=== PATIENT | male | born 1980 | race African-American/Black ===

== ENCOUNTER 2018-03-21 20:16 | Inpatient (IN) | payer BC, MEDICAID ==
[~2018-03-21] VITALS: Ht 162.6 cm; Wt 88.0 kg
[2018-03-21] MEDS ORDERED: [UNRECOGNIZED DRUG - OTHER] PO (20:38)
[2018-03-21 21:00] LABS: MEAN CORPUSCULAR HEMOGLOBIN 32.9 pg (27.5-34.5); MEAN CORPUSCULAR HGB CONC 33.6 g/dL (33.2-36.2); MEAN CORPUSCULAR VOLUME 98.2 fL (81-97); MEAN PLATELET VOLUME 7.4 fL (7.4-10.4); PLATELET COUNT 508 x10^3/uL (130-400); RED BLOOD COUNT 4.12 x10^6/uL (4.38-5.82); RED CELL DISTRIBUTION WIDTH 14.1 % (9.4-14.8)
[2018-03-21] MEDS ORDERED: PHARMACOKINETIC CONSULTATION MC ONE (21:00)
[2018-03-21] MEDS ORDERED: MORPHINE SULFATE 4 MG/ML, 1ML IVPush PRN (21:00)
[2018-03-21] MEDS ORDERED: VANCOMYCIN 1,800 MG in SODIUM CHLORIDE 0.9% 250 ML IV ONE (21:00)
[2018-03-21] MEDS ORDERED: VANCOMYCIN PER PHARMACY MC PRN ×2 (21:00→23:30)
[2018-03-21] MEDS ORDERED: PIPERACILLIN/TAZO/PMX 4.5GM 100 ML IV SCH (21:00)
[2018-03-21 21:08] LABS: PROTHROMBIN TIME 10.3 Seconds (9.6-11.5)
[2018-03-21 21:10] LABS: ALANINE AMINOTRANSFERASE 19 U/L (12-78); ALBUMIN 2.7 g/dL (3.4-5.0); ANION GAP 8 mmol/L (5-15); CALCIUM 9.2 mg/dL (8.5-10.1); CHLORIDE 102 mmol/L (98-107); CREATININE 0.89 mg/dL (0.7-1.3)
[2018-03-21 21:13] LABS: ALKALINE PHOSPHATASE 100 U/L (45-117); BILIRUBIN,TOTAL 0.2 mg/dL (0.2-1.0); MD YES; TOTAL PROTEIN 8.9 g/dL (6.4-8.2)
[2018-03-21 21:15] LABS: <PLT MORPHOLOGY> NORMAL PLT MORPH; <RBC MORPHOLOGY> NORMAL; BAND#(MANUAL) 0.43 x10^3/uL; BANDS%(MANUAL) 2 % (0-7); EOS#(MANUAL) 0.21 x10^3/uL (0.0-0.4); EOS% (MANUAL) 1 % (1-7); LYMPH#(MANUAL) 2.13 x10^3/uL (1-3.4); LYMPHS% (MANUAL) 10 % (22-44); MONOS#(MANUAL) 0.64 x10^3/uL (0.3-2.7); MONOS% (MANUAL) 3 % (2-9); SEG#(MANUAL) 17.89 x10^3/uL (1.8-6.8); SEGS% (MANUAL) 84 % (42-75)
[2018-03-21 21:16] LABS: <PLATELET ESTIMATE> INCREASED
[2018-03-21] MEDS ORDERED: BISACODYL 10 MG SUPP PR PRN (23:30)
[2018-03-21] MEDS: HEPARIN 5,000 UNITS/ML, 1ML SQ SCH (23:30)
[2018-03-21] MEDS ORDERED: ONDANSETRON 2MG/ML, 2ML IVPush PRN (23:30)
[2018-03-21] MEDS ORDERED: ACETAMINOPHEN 325 MG TABLET PO PRN (23:30)
[2018-03-21] MEDS ORDERED: POLYETHYLENE GLYCOL 17 GM PACKET PO PRN (23:30)
[2018-03-22 00:47] LABS: FOLATE LEVEL 11.1 ng/mL (3.1-17.5)
[2018-03-22] MEDS: NS + 20MEQ KCL 1,000 ML IV SCH ×3 (00:54→21:08)
[2018-03-22] MEDS: morphine SULFATE 10 MG/ML, 1ML IVPush PRN (00:55)
[2018-03-22] MEDS ORDERED: PHARMACOKINETIC CONSULTATION MC ONE (01:00)
[2018-03-22] MEDS ORDERED: PHARMACOKINETIC MONITORING MC PRN (01:00)
[2018-03-22 01:03] VITALS: BP 138/82
[2018-03-22 01:06] VITALS: BP 138/82
[2018-03-22] MEDS: PIPERACILLIN/TAZO/PMX 3.375GM 50 ML IV SCH ×4 (04:09→21:09)
[2018-03-22 05:44] LABS: MEAN CORPUSCULAR HEMOGLOBIN 32.8 pg (27.5-34.5); MEAN CORPUSCULAR VOLUME 96.5 fL (81-97); MEAN PLATELET VOLUME 7.6 fL (7.4-10.4); PLATELET COUNT 449 x10^3/uL (130-400); RED BLOOD COUNT 3.58 x10^6/uL (4.38-5.82); RED CELL DISTRIBUTION WIDTH 14.3 % (9.4-14.8)
[2018-03-22 05:54] LABS: ALBUMIN 2.3 g/dL (3.4-5.0); ANION GAP 10 mmol/L (5-15); CALCIUM 8.5 mg/dL (8.5-10.1); CHLORIDE 103 mmol/L (98-107)
[2018-03-22 05:57] LABS: ALANINE AMINOTRANSFERASE 14 U/L (12-78); ALKALINE PHOSPHATASE 75 U/L (45-117); BILIRUBIN,TOTAL 0.5 mg/dL (0.2-1.0); CREATININE 0.87 mg/dL (0.7-1.3); TOTAL PROTEIN 7.6 g/dL (6.4-8.2)
[2018-03-22 06:13] LABS: BASOPHILS # (AUTO) 0.05 x10^3/uL (0-0.1); BASOPHILS % (AUTO) 0 % (0-1); EOSINOPHILS # (AUTO) 0.09 x10^3/uL (0-0.4); EOSINOPHILS % (AUTO) 1 % (1-7); LYMPHOCYTES # (AUTO) 1.61 x10^3/uL (1-3.4); LYMPHOCYTES % (AUTO) 10 % (22-44); MD SCAN; MONOCYTES # (AUTO) 0.96 x10^3/uL (0.2-0.8); MONOCYTES % (AUTO) 6 % (2-9); NEUTROPHILS # (AUTO) 13.39 x10^3/uL (1.8-6.8); NEUTROPHILS % (AUTO) 83 % (42-75)
[2018-03-22] MEDS: HEPARIN 5,000 UNITS/ML, 1ML SQ SCH ×3 (07:30→22:35)
[2018-03-22 08:00] VITALS: BP 154/84
[2018-03-22] MEDS: VANCOMYCIN 1,600 MG in SODIUM CHLORIDE 0.9% 250 ML IV SCH ×2 (08:57→22:35)
[2018-03-22] MEDS: SENNA/DOCUSATE TABLET PO SCH (09:00)
[2018-03-22] MEDS ORDERED: GADOBUTROL 10 MMOL/10 ML PFS ONE (13:50)
[2018-03-22 14:00] VITALS: BP 133/70
[2018-03-22] MEDS ORDERED: POTASSIUM CHLORIDE 20 MEQ TAB.ER.PRT PO ONE (15:00)
[2018-03-22 15:56] LABS: % IRON SATURATION 6 % (20-55); IRON LEVEL 17 mcg/dL (65-175); TOTAL IRON BINDING CAPACITY 266 mcg/dL (250-450)
[2018-03-22 19:20] VITALS: BP 128/79
[2018-03-23 00:27] VITALS: BP 150/89
[2018-03-23] MEDS: PIPERACILLIN/TAZO/PMX 3.375GM 50 ML IV SCH ×4 (04:40→22:27)
[2018-03-23 05:40] LABS: BASOPHILS # (AUTO) 0.03 x10^3/uL (0-0.1); BASOPHILS % (AUTO) 0 % (0-1); EOSINOPHILS # (AUTO) 0.12 x10^3/uL (0-0.4); EOSINOPHILS % (AUTO) 1 % (1-7); LYMPHOCYTES # (AUTO) 2.01 x10^3/uL (1-3.4); LYMPHOCYTES % (AUTO) 17 % (22-44); MD NO; MEAN CORPUSCULAR HGB CONC 33.4 g/dL (33.2-36.2); MONOCYTES # (AUTO) 0.77 x10^3/uL (0.2-0.8); MONOCYTES % (AUTO) 6 % (2-9); NEUTROPHILS # (AUTO) 9.22 x10^3/uL (1.8-6.8); NEUTROPHILS % (AUTO) 76 % (42-75); PLATELET COUNT 459 x10^3/uL (130-400); RED BLOOD COUNT 3.82 x10^6/uL (4.38-5.82); RED CELL DISTRIBUTION WIDTH 14.3 % (9.4-14.8)
[2018-03-23 05:45] LABS: ANION GAP 8 mmol/L (5-15); CALCIUM 8.7 mg/dL (8.5-10.1); CHLORIDE 105 mmol/L (98-107)
[2018-03-23] MEDS: HEPARIN 5,000 UNITS/ML, 1ML SQ SCH ×3 (07:30→23:42)
[2018-03-23 08:02] VITALS: BP 130/77
[2018-03-23] MEDS: SENNA/DOCUSATE TABLET PO SCH (08:21)
[2018-03-23] MEDS: NS + 20MEQ KCL 1,000 ML IV SCH ×2 (08:28→16:46)
[2018-03-23] MEDS ORDERED: MIDAZOLAM 1 MG/ML, 2ML ONE (10:19)
[2018-03-23] MEDS ORDERED: FENTANYL PF 100 MCG/2ML ONE (10:19)
[2018-03-23] MEDS: VANCOMYCIN 1,600 MG in SODIUM CHLORIDE 0.9% 250 ML IV SCH ×2 (10:51→23:26)
[2018-03-23] MEDS ORDERED: PROPOFOL 10 MG/ML, 20ML ONE (11:18)
[2018-03-23] MEDS ORDERED: ONDANSETRON 2MG/ML, 2ML ONE (11:18)
[2018-03-23] MEDS ORDERED: DEXAMETHASONE 4 MG/ML, 1ML ONE (11:18)
[2018-03-23] MEDS ORDERED: KETOROLAC 30 MG/1 ML IV PRN (12:00)
[2018-03-23] MEDS ORDERED: FENTANYL PF 100 MCG/2ML IV PRN (12:00)
[2018-03-23] MEDS ORDERED: OXYcodone 5 MG/5 ML ORAL.SOL UDC PO PRN (12:00)
[2018-03-23] MEDS ORDERED: ACETAMINOPHEN 325 MG TABLET PO PRN (12:00)
[2018-03-23] MEDS ORDERED: ALBUTEROL SULFATE 2.5 MG/3 ML NPPB PRN (12:00)
[2018-03-23] MEDS ORDERED: hydrALAzine 20 MG/ML, 1ML IV PRN (12:00)
[2018-03-23] MEDS ORDERED: LORazepam 2 MG/ML, 1ML IVPush PRN (12:00)
[2018-03-23] MEDS ORDERED: PROMETHAZINE 25 MG/ML, 1ML IV PRN (12:00)
[2018-03-23] MEDS ORDERED: MEPERIDINE/PF 25MG/0.5ML IVPush PRN (12:00)
[2018-03-23] MEDS ORDERED: LABETALOL 5MG/ML, 20ML IV PRN (12:00)
[2018-03-23] MEDS ORDERED: HYDROmorphone 1 MG/ML, 1ML IV PRN (12:00)
[2018-03-23] MEDS ORDERED: OXYcodone 5 MG/5 ML ORAL.SOL UDC ONE (12:21)
[2018-03-23] MEDS ORDERED: KETOROLAC 30 MG/1 ML ONE (12:21)
[2018-03-23 13:07] VITALS: BP 131/72
[2018-03-23] MEDS: IRON SUCROSE COMPLEX 100MG/5ML IV SCH (14:54)
[2018-03-23 19:34] VITALS: BP 147/88
[2018-03-24] MEDS: NS + 20MEQ KCL 1,000 ML IV SCH ×3 (01:02→20:40)
[2018-03-24 01:40] VITALS: BP 152/87
[2018-03-24] MEDS: PIPERACILLIN/TAZO/PMX 3.375GM 50 ML IV SCH (04:56)
[2018-03-24 05:41] LABS: BASOPHILS # (AUTO) 0.06 x10^3/uL (0-0.1); BASOPHILS % (AUTO) 0 % (0-1); EOSINOPHILS # (AUTO) 0.03 x10^3/uL (0-0.4); EOSINOPHILS % (AUTO) 0 % (1-7); HCT (SEDRATE) 36.5 % (39.2-51.8); LYMPHOCYTES % (AUTO) 16 % (22-44); MD NO; MEAN CORPUSCULAR HEMOGLOBIN 32.4 pg (27.5-34.5); MEAN CORPUSCULAR HGB CONC 33.9 g/dL (33.2-36.2); MEAN CORPUSCULAR VOLUME 95.6 fL (81-97); MEAN PLATELET VOLUME 7.1 fL (7.4-10.4); MONOCYTES # (AUTO) 0.87 x10^3/uL (0.2-0.8); MONOCYTES % (AUTO) 6 % (2-9); NEUTROPHILS # (AUTO) 10.88 x10^3/uL (1.8-6.8); NEUTROPHILS % (AUTO) 78 % (42-75); PLATELET COUNT 521 x10^3/uL (130-400); RED BLOOD COUNT 3.81 x10^6/uL (4.38-5.82); RED CELL DISTRIBUTION WIDTH 13.9 % (9.4-14.8)
[2018-03-24 05:52] LABS: CHLORIDE 104 mmol/L (98-107)
[2018-03-24 06:05] LABS: ALANINE AMINOTRANSFERASE 35 U/L (12-78); ALBUMIN 2.3 g/dL (3.4-5.0); ALKALINE PHOSPHATASE 93 U/L (45-117); ANION GAP 8 mmol/L (5-15); BILIRUBIN,TOTAL 0.5 mg/dL (0.2-1.0); CALCIUM 7.8 mg/dL (8.5-10.1); CREATININE 0.78 mg/dL (0.7-1.3); TOTAL PROTEIN 7.5 g/dL (6.4-8.2)
[2018-03-24 06:20] LABS: SEDIMENTATION RATE 113 mm/hr (0-10)
[2018-03-24 08:04] VITALS: BP 137/89
[2018-03-24] MEDS: HEPARIN 5,000 UNITS/ML, 1ML SQ SCH ×2 (08:11→16:36)
[2018-03-24] MEDS: IRON SUCROSE COMPLEX 100MG/5ML IV SCH (08:12)
[2018-03-24] MEDS: SENNA/DOCUSATE TABLET PO SCH (08:15)
[2018-03-24] MEDS ORDERED: LIDOCAINE-MPF 1%, 2ML ONE (13:36)
[2018-03-24] MEDS: DAPTOMYCIN 550 MG in SODIUM CHLORIDE 0.9% 100 ML IVPB SCH (16:36)
[2018-03-24 16:57] VITALS: BP 156/97
[2018-03-24 19:48] VITALS: BP 147/88
[2018-03-24] MEDS: morphine SULFATE 10 MG/ML, 1ML IVPush PRN (20:40)
[2018-03-25] MEDS: HEPARIN 5,000 UNITS/ML, 1ML SQ SCH ×3 (00:43→16:15)
[2018-03-25] MEDS: NS + 20MEQ KCL 1,000 ML IV SCH ×3 (04:11→20:00)
[2018-03-25 04:15] VITALS: BP 142/80
[2018-03-25 04:30] LABS: BASOPHILS # (AUTO) 0.35 x10^3/uL (0-0.1); BASOPHILS % (AUTO) 3 % (0-1); EOSINOPHILS # (AUTO) 0.09 x10^3/uL (0-0.4); EOSINOPHILS % (AUTO) 1 % (1-7); LYMPHOCYTES # (AUTO) 2.99 x10^3/uL (1-3.4); LYMPHOCYTES % (AUTO) 25 % (22-44); MD NO; MEAN CORPUSCULAR HEMOGLOBIN 31.3 pg (27.5-34.5); MEAN CORPUSCULAR HGB CONC 32.8 g/dL (33.2-36.2); MEAN CORPUSCULAR VOLUME 95.6 fL (81-97); MEAN PLATELET VOLUME 7.5 fL (7.4-10.4); MONOCYTES # (AUTO) 0.72 x10^3/uL (0.2-0.8); MONOCYTES % (AUTO) 6 % (2-9); NEUTROPHILS # (AUTO) 7.87 x10^3/uL (1.8-6.8); NEUTROPHILS % (AUTO) 65 % (42-75); PLATELET COUNT 538 x10^3/uL (130-400); RED BLOOD COUNT 3.69 x10^6/uL (4.38-5.82); RED CELL DISTRIBUTION WIDTH 14.1 % (9.4-14.8)
[2018-03-25 04:40] LABS: ANION GAP 6 mmol/L (5-15); CALCIUM 8.2 mg/dL (8.5-10.1); CHLORIDE 106 mmol/L (98-107); CREATININE 0.76 mg/dL (0.7-1.3)
[2018-03-25] MEDS: SENNA/DOCUSATE TABLET PO SCH (09:00)
[2018-03-25] MEDS ORDERED: SILVER NITRATE STICK TP ONE ×2 (09:00→09:02)
[2018-03-25] MEDS ORDERED: LIDOCAINE 1%-EPI 1:100K, 20ML INFIL ONE (09:00)
[2018-03-25] MEDS ORDERED: LIDOCAINE 2%-EPI 1:100K, 20ML INFIL ONE (09:00)
[2018-03-25] MEDS: IRON SUCROSE COMPLEX 100MG/5ML IV SCH (09:57)
[2018-03-25 10:06] VITALS: BP 142/88
[2018-03-25] MEDS: DAPTOMYCIN 550 MG in SODIUM CHLORIDE 0.9% 100 ML IVPB SCH (13:49)
[2018-03-25 19:51] VITALS: BP 139/82
[2018-03-26] MEDS: NS + 20MEQ KCL 1,000 ML IV SCH ×3 (01:21→22:16)
[2018-03-26 01:28] VITALS: BP 142/92
[2018-03-26] MEDS: HEPARIN 5,000 UNITS/ML, 1ML SQ SCH ×3 (04:27→22:16)
[2018-03-26 04:43] LABS: BASOPHILS # (AUTO) 0.47 x10^3/uL (0-0.1); BASOPHILS % (AUTO) 4 % (0-1); EOSINOPHILS # (AUTO) 0.11 x10^3/uL (0-0.4); EOSINOPHILS % (AUTO) 1 % (1-7); LYMPHOCYTES % (AUTO) 24 % (22-44); MD NO; MEAN CORPUSCULAR HEMOGLOBIN 32.1 pg (27.5-34.5); MEAN CORPUSCULAR HGB CONC 33.7 g/dL (33.2-36.2); MEAN CORPUSCULAR VOLUME 95.3 fL (81-97); MEAN PLATELET VOLUME 7.1 fL (7.4-10.4); MONOCYTES # (AUTO) 0.89 x10^3/uL (0.2-0.8); MONOCYTES % (AUTO) 8 % (2-9); NEUTROPHILS # (AUTO) 7.57 x10^3/uL (1.8-6.8); NEUTROPHILS % (AUTO) 63 % (42-75); PLATELET COUNT 541 x10^3/uL (130-400); RED BLOOD COUNT 3.75 x10^6/uL (4.38-5.82); RED CELL DISTRIBUTION WIDTH 13.9 % (9.4-14.8)
[2018-03-26 08:38] VITALS: BP 150/93
[2018-03-26] MEDS: SENNA/DOCUSATE TABLET PO SCH (09:00)
[2018-03-26] MEDS: IRON SUCROSE COMPLEX 100MG/5ML IV SCH (10:18)
[2018-03-26] MEDS: morphine SULFATE 10 MG/ML, 1ML IVPush PRN (10:18)
[2018-03-26] MEDS: DAPTOMYCIN 550 MG in SODIUM CHLORIDE 0.9% 100 ML IVPB SCH (13:29)
[2018-03-26 14:00] VITALS: BP 139/81
[2018-03-26 19:39] VITALS: BP 126/85
[2018-03-26 21:56] VITALS: BP 139/81
[2018-03-27 01:15] VITALS: BP 154/95
[2018-03-27] MEDS: HEPARIN 5,000 UNITS/ML, 1ML SQ SCH ×2 (06:23→13:00)
[2018-03-27] MEDS: NS + 20MEQ KCL 1,000 ML IV SCH (06:32)
[2018-03-27] MEDS ORDERED: MORPHINE SULFATE 4 MG/ML, 1ML IVPush PRN (07:30)
[2018-03-27 08:57] VITALS: BP 164/81
[2018-03-27] MEDS: SENNA/DOCUSATE TABLET PO SCH (09:00)
[2018-03-27] MEDS: DAPTOMYCIN 550 MG in SODIUM CHLORIDE 0.9% 100 ML IVPB SCH (12:43)
[2018-03-27] MEDS ORDERED: ACET325T14 PO (13:05)
[2018-03-27] MEDS ORDERED: HYDR-3241 PO (13:05)
[2018-03-27] MEDS ORDERED: SENN1TAB7 PO (13:05)
[2018-03-27] MEDS ORDERED: BISA10SU65 PR (13:05)
[2018-03-27] MEDS ORDERED: POLY17PO5 PO (13:05)
[2018-03-27] MEDS ORDERED: DAPT500V6 IV (13:08)
[2018-03-27 14:36] VITALS: BP 128/76
[2018-03-27] MEDS ORDERED: NS + 20MEQ KCL 1,000 ML IV SCH (23:15)
== END 2018-03-27 16:08 | DRG 872 ==
LOC: ED 22:20 → EDIP 22:46 → 3NE 23:32
PROVIDERS: ADMIT Internal Medicine; ATTEND Internal Medicine
PROC: 0Y9L0ZZ Drainage of Left Ankle Region, Open Approach (ICD-10-PCS; 2018-03-23)
PROC: 0Y9N0ZZ Drainage of Left Foot, Open Approach (ICD-10-PCS; 2018-03-23)
PROC: 02HV33Z Insertion of Infusion Device into Superior Vena Cava, Percutaneous Approach (ICD-10-PCS; principal; 2018-03-24)
PROC: B548ZZA Ultrasonography of Superior Vena Cava, Guidance (ICD-10-PCS; 2018-03-24)
DX: A41.02 Sepsis due to Methicillin resistant Staphylococcus aureus (principal); E44.0 Moderate protein-calorie malnutrition; C46.9 Kaposi's sarcoma, unspecified; L02.416 Cutaneous abscess of left lower limb; L02.612 Cutaneous abscess of left foot; M86.179 Other acute osteomyelitis, unspecified ankle and foot; L03.116 Cellulitis of left lower limb; D47.3 Essential (hemorrhagic) thrombocythemia; D53.9 Nutritional anemia, unspecified; D50.9 Iron deficiency anemia, unspecified; E87.6 Hypokalemia; F12.90 Cannabis use, unspecified, uncomplicated; L02.92 Furuncle, unspecified; L43.0 Hypertrophic lichen planus; Z79.2 Long term (current) use of antibiotics; Z85.89 Personal history of malignant neoplasm of other organs and systems; Z91.14 Patient's other noncompliance with medication regimen; Z68.33 Body mass index [BMI] 33.0-33.9, adult; Z90.49 Acquired absence of other specified parts of digestive tract
CPT/HCPCS: 36415; 36569; 76937; 77001; 80048; 80053; 82550; 82607; 82746; 83540; 83550; 83605; 85025; 85610; 85651; 85730; 86140; 86361; 86704; 86706; 86708; 86803; 87015; 87040; 87070; 87075; 87077; 87102; 87116; 87147; 87176; 87186; 87205; 87206; 87340; 87536; 88305; 96365; 96368; A9585; J0878; J1100; J1644; J1756; J2250; J2405; J2543; J2704; J3010; J3370; J3480; J3490; C1751; J2270; J7050